=== PATIENT | female | born 1995 | race Caucasian/White ===

== ENCOUNTER 2021-03-22 11:14 | Outpatient (RCR) | payer OTHER, SELFPAY ==
[2021-03-22] MEDS: ACETAMINOPHEN 325 MG TABLET 650 MG PO (15:16)
[2021-03-22] MEDS: diphenhydrAMINE HCl CAP 25 MG CAPSULE PO (15:16)
[2021-03-22] MEDS: FAMOTIDINE 20 MG TABLET PO (15:16)
[2021-03-22 15:22] VITALS: BP 125/69; PULSE 70; RESP 18; TEMP 37.3; O2SAT 99
[2021-03-22 16:29] VITALS: BP 120/71; PULSE 59; RESP 16; TEMP 37.3; O2SAT 100
== END 2021-03-22 17:00 | disposition home or self-care (01) ==
LOC: AMCINF 11:14
PROVIDERS: PCP Nurse Practitioner Adult Health; Visit Provider Internal Medicine Hematology & Oncology
DX: U07.1 COVID-19 (principal); J45.909 Unspecified asthma, uncomplicated
CPT/HCPCS: A9270; M0243; Q0244

== ENCOUNTER 2023-05-13 13:59 | Emergency (ER) | payer OTHER, MEDICAID, SELFPAY ==
--- NOTE | ~2023-05-13 | CT_ITS ---
EXAMINATION: CT abdomen pelvis w con DATE: 05/13/2023 17:00 INDICATION: Back pain leading to the bilateral hips with nausea and fever TECHNIQUE: Computed tomography (CT) of the abdomen and pelvis was performed with 100 mL Omnipaque-350 intravenous contrast. Automated exposure control and iterative reconstruction technique were employe d. The dose-length product was 388.57 mGy-cm. COMPARISON: None FINDINGS: Lung bases are clear. Heart size is normal. No pericardial or pleural effusion. Mild pectus excavatum . Liver, gallbladder, spleen, pancreas, bilateral adrenal glands and kidneys are normal. Normal appen matt. No bowel obstruction. Bladder, uterus and bilateral adnexa are unremarkable. No free intraperito rebeca gas or fluid. No pathologically enlarged abdominal or pelvic lymphadenopathy. Bones are unremark able. IMPRESSION: 1. No acute intra-abdominal/pelvic process. Reviewed, dictated and finalized at location A. NO DEALER
--- NOTE | ~2023-05-13 | XR_ITS ---
EXAMINATION: XR chest 2V Exam Date/Time: 05/13/2023 18:06 SMOCKING MACHINE OPERATOR HISTORY: cough Comparison: None. RESULT: Lines, tubes, and devices: None. Lungs and pleura: Clear. Apparent hazy right medial basal consolidation is likely secondary to pectu s excavatum, as it is in a classic location and there is no correlate opacity in the lateral view. Cardiomediastinal silhouette: Normal. Other: No acute osseous or upper abdominal finding. IMPRESSION: No acute cardiopulmonary process. Reviewed, dictated and finalized at location K. KING MACHINE OPERATOR
[2023-05-13 14:04] VITALS: BP 123/73; PULSE 120; RESP 20; TEMP 36.8; O2SAT 99
--- NOTE | 2023-05-13 15:42 | ED.GENADULT ---
HPI - General Adult General Chief complaint: Nausea/Vomiting/Diarrhea <Annamaria Lepe July, Last Filed: 05/13/23 15:49> Stated complaint: nausea / vomiting for 2 days and fever <Annamaria Lepe July, - Last Filed: 05/13/23 15:49> Time Seen by Provider: 05/13/23 15:42 <Annamaria Lepe July, - Last Filed: 05/13/23 15:49> Focused HPI: Dwight Roldan is a 28 y/o female who presents with complaints of having fever/ Nausea/vomiting that started yesterday - Temp was 102 today and she reports she has vomited twice today that was stomach bile. She also reports of lower abdominal pain. Denies dysuria - she vincent to an UC tested negative for flu/covid and was given Ibuprofen and told to go to the ER for more of a work up. GENERAL:well-nourished, and in no acute distress. Appear to be uncomfortable HEAD: Normocephalic, atraumatic. CHEST: Clear to auscultation. ?No respiratory distress. HEART: Regular rate and rhythm.? NEURO: ?Alert and oriented x3. GI: Pain to the lower abdomen with palpation Patient screened in triage and initial orders placed.? ?Additional care and disposition to be based upon?diagnostic testing and treatment. <Annamaria Lepe July, Last Filed: 05/13/23 15:49> History of Present Illness HPI narrative: 28-year-old female reports for evaluation for productive cough, congestion, nausea and vomiting, pain back pain since yesterday. Patient states yesterday she 1 episode of emesis and developed a fever 102 today. States she went to urgent care tested negative for COVID influenza sent here for further evaluation. Patient has a known history of a lumbar cyst that was diagnosed in 2011, attempted aspiration without success. Patient was told it was too small for aspiration she has not had any issues since other than intermittent low back pain. States she her back pain is currently sharp. Denies saddle anesthesia, lower extremity weakness or numbness, bowel or bladder incontinence or retention. She is also reporting pain in her bilateral inguinal regions which she states happens every time she feels ill. She denies vaginal discharge or concern for STDs. Patient states she took ibuprofen prior to coming to the ER which improved her fever. Denies otalgia, sore throat, recent surgeries or procedures on her back, IV drug use, diarrhea. <Kristie Fish PA-C - Last Filed: 05/14/23 02:17> Related Data Home medications: Home Medications Medication Instructions Recorded Confirmed albuterol 90 mcg/actuation aerosol 90 mcg inhalation DAILY PRN 03/22/21 03/22/21 inhaler Shortness Of Breath sertraline 25 mg tablet (Zoloft) 25 mg PO DAILY 03/22/21 03/22/21 <Annamaria Lepe July, GRAPHITE MILL OPERATOR - Last Filed: 05/13/23 15:49> Allergies/adverse reactions: Allergies Allergy/AdvReac Type Severity Reaction Status Date / Time almond Allergy Anaphylaxis Verified 05/13/23 17:17 barley Allergy Anaphylaxis Verified 05/13/23 17:17 soy Allergy Anaphylaxis Verified 05/13/23 17:17 pitted fruits Allergy Anaphylaxis Uncoded 05/13/23 13:59 rye Allergy Anaphylaxis Uncoded 05/13/23 13:59 <Annamaria Lepe July, GRAPHITE MILL OPERATOR - Last Filed: 05/13/23 15:49> Review of Systems Review of Systems: CONSTITUTIONAL: See HPI EYES: Denies visual changes, redness, or discharge. ENT: Denies rhinorrhea, congestion, sore throat, or otalgia. CARDIOVASCULAR: Denies chest pain, palpitations, or edema. RESPIRATORY: Denies cough or dyspnea. GASTROINTESTINAL: See HPI GENITOURINARY: See HPI SKIN: Denies rash or itching. MUSCULOSKELETAL: Denies back pain, joint pain, or myalgia. NEUROLOGIC: Denies headache, numbness, or weakness. PSYCHIATRIC: Denies anxiety or depression. <Kristie Fish PA-C - Last Filed: 05/14/23 02:17> Exam Narrative: GENERAL: Well-appearing, well-nourished, and in no acute distress. Patient resting comfortably in exam bed. She is pleasant and conversational. HEAD: Normocephalic, atraumatic. EYES: PERRLA and EOMI. ENT: Nares clear
[2023-05-13 16:17] VITALS: BP 129/84; PULSE 91; RESP 18; O2SAT 100
[2023-05-13] MEDS: FAMOTIDINE 20 MG/2 ML VIAL IV PUSH (16:26)
[2023-05-13] MEDS: ONDANSETRON INJ 4 MG/2 ML VIAL IV PUSH (16:27)
[2023-05-13 16:29] LABS: Basophils Percent Auto 0.4 % (0.2-1.2); Hematocrit 42.2 % (37.0-47.0); Immature Granulocyte Absolute 0.02 K/mm3 (0.00-0.031); Immature Granulocyte Percent A 0.3 % (0-0.5); Lymphocytes Percent Auto 4.2 % (18.3-44.2); Mean Corpuscular HGB Conc 33.2 g/dl (32-36); Mean Corpuscular Volume 87.4 fl (80-100); Mean Platelet Volume 9.7 fl (7.4-10.4); Monocytes Absolute Auto 0.6 K/mm3 (0.1-0.6); Neutrophils Absolute Auto 6.2 K/mm3 (1.3-6.7); Neutrophils Percent Auto 86.1 % (45.5-73.1); Platelet Count Result 275 k/mm3 (150-375); Red Blood Count 4.83 M/mm3 (4.2-5.4); Red Cell Distribution Width 11.8 % (11.5-14.5); White Blood Count 7.1 K/mm3 (4.5-10.0)
[2023-05-13 16:41] LABS: Alanine Aminotransferase 21 U/L (6-35); Albumin Level 5.1 g/dL (3.5-5.1); Alkaline Phosphatase 101 U/L (38-126); Anion Gap 10 mmol/L (8-16); Aspartate Amino Transferase 27 U/L (14-36); Bilirubin,Total 0.9 mg/dL (0.2-1.3); Blood Urea Nitrogen 12 mg/dL (7-17); Calcium 11.5 mg/dL (8.4-10.2); Carbon Dioxide 24 mmol/L (22-30); Chloride 105 mmol/L (98-107); Estimated CRCL calculation 144 ml/min; Estimated Glomerular Filt Rate > 60; Glucose 99 mg/dL (65-110); Lipase 35 U/L (23-300); Potassium 3.2 mmol/L (3.4-5.0); Sodium 139 mmol/L (137-145)
[2023-05-13 16:57] LABS: Appearance Urine Clear (Clear); Bacteria Urine None Seen /hpf; Bilirubin Urine Negative (Negative); Blood Urine Negative (Negative); Color Urine Yellow (Yellow); Glucose Urine UA Negative (Negative); Ketones Urine 3+ mg/dL (Negative); Leukocyte Esterase Ur Negative LEU/UL (Negative); Nitrate Urine Negative (Negative); Non Pathogenic Casts 0-2; Protein Urine 1+ mg/dL (Negative); Specific Grav Ur 1.026 (1.001-1.035); Squamous Epithelial Cell Urine None seen /hpf (Few); Urobilinogen Urine 0.2 mg/dL (<2.0); WBC Urine 0-5 /hpf; pH Urine 6.5 (5.0-9.0)
[2023-05-13 16:58] LABS: Add Urine Microscopic? YES
--- NOTE | 2023-05-13 17:43 | ECG_ITS ---
Measurements Intervals [place] Rate: 75 P: MT: 0 QRS: 50 QRSD: 117 T: 30 QT: 385 QTc: 431 Interpretive Statements ATRIAL FIBRILLATION INCOMPLETE RIGHT BUNDLE BRANCH BLOCK BORDERLINE ECG NO PREVIOUS ECG AVAILABLE FOR COMPARISON Electronically Signed On 05-13-2023 18:36:59 [place]E MACHINE OPERATOR by Ralf Eckert M.D.
[2023-05-13] MEDS: SODIUM CHLORIDE 0.9% IV 1,000 ML 999 ML IV CONT ×2 (18:05→18:37)
[2023-05-13 18:12] LABS: Magnesium 2.1 mg/dL (1.6-2.3)
[2023-05-13] MEDS: POTASSIUM CHLORIDE 20 MEQ PACKET (FOR LIQUID) PO (18:37)
--- NOTE | 2023-05-13 18:53 | ECG_ITS ---
Measurements Intervals [place] Rate: 79 P: 76 SC: 164 QRS: 45 QRSD: 119 T: 49 QT: 382 QTc: 438 Interpretive Statements SINUS RHYTHM WITH SINUS ARRHYTHMIA INCOMPLETE RIGHT BUNDLE BRANCH BLOCK [90+ ms QRS DURATION, TERMINAL R IN V1/V2, 40+ ms S IN I/aVL/V4/V5/V6] COMPARED TO ECG 05/13/2023 18:00:01 SINUS RHYTHM NOW PRESENT SINUS ARRHYTHMIA NOW PRESENT Electronically Signed On 05-14-2023 15:19:54 CUSTOMER OPERATIONS INTERN by Feliciano Hwang M.D.
[2023-05-13 19:46] VITALS: BP 128/75; PULSE 98; RESP 15; O2SAT 99
== END 2023-05-13 19:47 | disposition home or self-care (01) ==
PROVIDERS: Nurse Practitioner Family; Emergency Provider Physician Assistant; PCP Nurse Practitioner Adult Health
DX: B34.9 Viral infection, unspecified (principal); E86.0 Dehydration; E87.6 Hypokalemia; E83.52 Hypercalcemia; R11.2 Nausea with vomiting, unspecified; I48.91 Unspecified atrial fibrillation; I45.10 Unspecified right bundle-branch block
CPT/HCPCS: 36415; 71046; 74177; 80053; 81001; 81025; 83690; 83735; 85025; 93005; 96361; 96374; 96375; 99284; A9270; J2405; J7030; Q9967

== ENCOUNTER 2024-10-25 08:25 | Emergency (ER) | payer OTHER, SELFPAY ==
--- NOTE | 2024-10-25 08:44 | ED.GENADULT ---
HPI - General Adult General Chief complaint: Abdominal Pain Stated complaint: Vomiting/Abdominal Pain0 Time Seen by Provider: 10/25/24 08:44 Source: patient Mode of arrival: ambulatory Limitations: no limitations History of Present Illness HPI narrative: 29-year-old female patient presents to the [facility] with complaints of lower abdominal cramping, vomiting and diarrhea that started about 3:00 a.m. this morning. Patient states that she does vomit often in the morning and usually does have some nausea in the morning. Patient states that this episode this morning also had diarrhea occurring as well. Patient states that she has been getting some rashes on her belly which she describes as eczema but has never been diagnosed with eczema. Patient states she has not had a period about 7 years due to being on IUD and Depo. Patient states that she recently went off the Depo her last shot was in February of 2024 and it does have an appointment follow-up with OBGYN. Patient states she had about 1 or 2 glasses of most last night with dinner. Mother patient states that she did have hamburgers some fries with her partner however her partner has no symptoms. Patient states she does smoke marijuana every night before bed to help her sleep. Patient states she has been smoking marijuana every night before bed for at least 3 years. Related Data Home Medications ?Medication ?Instructions ?Recorded ?Confirmed ?Last Taken ?Type albuterol 90 mcg/actuation aerosol 90 mcg inhalation DAILY PRN 03/22/21 03/22/21 Unknown History inhaler Shortness Of Breath Allergies Allergy/AdvReac Type Severity Reaction Status Date / Time almond Allergy Anaphylaxis Verified 10/25/24 08:57 barley Allergy Anaphylaxis Verified 10/25/24 08:57 soy Allergy Anaphylaxis Verified 10/25/24 08:57 pitted fruits Allergy Anaphylaxis Uncoded 10/25/24 08:57 rye Allergy Anaphylaxis Uncoded 10/25/24 08:57 Review of Systems Review of Systems: CONSTITUTIONAL: Denies fever, chills, or sweats. EYES: Denies visual changes, redness, or discharge. ENT: Denies rhinorrhea, congestion, sore throat, or otalgia. CARDIOVASCULAR: Denies chest pain, palpitations, or edema. RESPIRATORY: Denies cough or dyspnea. GASTROINTESTINAL: Positive lower abdominal cramping, positive nausea, vomiting, stand diarrhea. GENITOURINARY: Denies dysuria or hematuria. SKIN: Positive rash to abdomen area, positive itching. MUSCULOSKELETAL: Denies back pain, joint pain, or myalgia. NEUROLOGIC: Denies headache, numbness, or weakness. PSYCHIATRIC: Denies anxiety or depression. [facility] Past Medical History Medical History Chronic vomiting Chronic nausea Anxiety Depression Social History Social History (Updated 10/25/24 @ 09:17 by AYSE Garcia) Substance use type: marijuana Last use: Daily marijuana smoker Comments At the time of my signature I agree with nursing past medical history, surgical, social, and family history. There is no relevant family history pertinent to the presenting complaint. Exam Narrative: GENERAL: Well-appearing, well-nourished, and in no acute distress. HEAD: Normocephalic, atraumatic. EYES: PERRLA and EOMI. ENT: Nares clear, no rhinorrhea or epistaxis. Mucous membranes moist. Posterior pharynx no erythema, tonsillar enlargement, exudates or lesions present. Bilateral TMs are clear no erythema or foreign bodies the canal. NECK: Supple. No lymphadenopathy CHEST: Clear to auscultation. No respiratory distress. HEART: Regular rate and rhythm. No murmur heard. Normal peripheral pulses. ABDOMEN: Soft, flat, nondistended. No guarding, rebound tenderness, or rigid. No pulsatilla masses. Hyperactive Bowel sounds present in all right lower and left lower quadrants. No organomegaly. Negative Vargas?s sign. No periumbicial tenderness. No Supra public tenderness or distension. Good femoral pulses bilaterally. No hernia noted. No scars or surface trauma. EXTREMITIES: Normal range of motion. No edema. SKIN: Warm, dry, no rash. NEURO: No focal deficits. Alert and oriented x3. Course Course Level of Care: Express Care Visit Reevaluation(s) Reevaluation #1: Re-evaluated patient notified her that her urine dip is negative and her test is negative. We will send the urine off for culture to make sure there is a bacterial infection could be causing her symptoms. Discussed with patient that I do believe that he has chronic issues are most likely be caused by poor got health as well as possibly a gluten intolerance or THC intolerance causing chronic hyperemesis. Highly recommend the patient goes off both gluten and the THC for at least 3-4 weeks and see if her symptoms improve. Discussed with patient to start taking a probiotic to help care and got help. Discussed with patient if she would like to reintroduce the THC wore the wound is about 3-4 weeks and see if the symptoms come back and then she will know which 1 she has intolerance to appear in highly recommend patient follow-up with primary doctor for further evaluation including blood panel. Patient verbalized understanding denies any other questions or concerns at this time. Date: 10/25/24 Time: 09:27 Vital Signs Vital signs: Vital Signs Temperature 37.1 C 10/25/24 08:45 Pulse Rate 73 10/25/24 08:45 Respiratory Rate 20 10/25/24 08:45 Blood Pressure 141/81 H 10/25/24 08:45 Pulse Oximetry 100 10/25/24 08:45 Oxygen Delivery Room Air 10/25/24 08:45 Temperature 37.1 C 10/25/24 08:45 Pulse Rate 73 10/25/24 08:45 Respiratory Rate 20 10/25/24 08:45 Blood Pressure 141/81 H 10/25/24 08:45 Pulse Oximetry 100 10/25/24 08:45 Oxygen Delivery Room Air 10/25/24 08:45 Vital signs reviewed. The patient has been informed that they may have pre-hypertension or Hypertension based on a BP reading in the department. I recommend that the patient call the primary care provider listed on their discharge instructions or a physician of their choice this week to arrange follow up for further evaluation of possible pre-hypertension or Hypertension Medical Decision Making MDM Narrative Medical decision making narrative: Plan care for patient is to obtain a urine dip to assess for possible infections. test. Discussed with patient I highly suspect that her chronic nausea and vomiting is most likely due to chronic marijuana use. Discussed with patient this also could be gluten intolerance. Highly recommend that she goes off both the THC and the gluten and see if her symptoms have resolved and also recommend that she start some probiotics to help healing her God. Highly recommend the patient follow up with primary doctor for further evaluation including blood tests. I will reassess patient once urine dip and test has resulted. Patient does have a current prescription for Zofran at this time. Differential Diagnosis Differential Diagnosis: Differential diagnosis: Appendicitis, ovarian torsion, gallbladder disease, ovarian torsion, pancreatitis, lower lobe pneumonia,AAA, AMI or ACS, DKA, diverticulitis. Vital Signs Vital Signs: Vital Signs Temperature 37.1 C 10/25/24 08:45 Pulse Rate 73 10/25/24 08:45 Respiratory Rate 20 10/25/24 08:45 Blood Pressure 141/81 H 10/25/24 08:45 Pulse Oximetry 100 10/25/24 08:45 Oxygen Delivery Room Air 10/25/24 08:45 Temperature 37.1 C 10/25/24 08:45 Pulse Rate 73 10/25/24 08:45 Respiratory Rate 20 10/25/24 08:45 Blood Pressure 141/81 H 10/25/24 08:45 Pulse Oximetry 100 10/25/24 08:45 Oxygen Delivery Room Air 10/25/24 08:45 Critical Care Time Critical Care Time Critical Care Time: No Discharge Plan Discharge Clinical Impression: Hyperemesis, Diarrhea Patient Disposition: Home Condition: Stable Instructions: Antibiotic Form, Gluten-Free Diet (ED) Additional Instructions: Give fluids to prevent dehydration. Low-fat diet with increase in fluids, such as sports drinks, gelatin, soups, to prevent dehydration. Other suggestions include chicken noodle soup, Rice, bread, crackers, cereal, yogurt bananas, and applesauce. High sugar foods and drinks (soda and juices), can worsen diarrhea. Eating fried foods can worsen diarrhea. For vomiting: The best is to give small amounts at a time. When the stomach is upset, and will vomit when it fills. Prevent this by giving only 1 cup at a time. And to give more in 15 minutes. This will keep the stomach empty, so the patient is less likely to vomit. If you do not vomit after this, you can slowly increase the amount in the cup each time. Medicines to stop vomiting can help. Call your doctor or go to the ER if your condition worsens or: Fever (temperature greater than 10 2?F [39?C]) occurs. There is blood in the stool diarrhea or if the stool is black. Lots of diarrhea occurs. Lots of vomiting occurs or the vomit is bloody or green or looks like chocolate or coffee. The belly looks very full or big. Symptoms of dehydration occurs (inside of the mouth looks sticky, urinating less, weakness, tiredness, pale color, eyes look hollow or sucken). Abdominal pain is worse. Patient Language: Armenian Prescriptions: No Action albuterol 90 mcg/actuation Aerosol 90 mcg INHALATION DAILY PRN (Reason: Shortness Of Breath) ondansetron 4 mg tablet,disintegrating 4 mg PO Q8H Qty: 14 0RF Follow-up/Referrals: Erum Pettit APRN [Primary Care Provider] - Stand Alone Forms: Work/School Release IP Time of Disposition: 09:27
[2024-10-25 08:45] VITALS: BP 141/81; PULSE 73; RESP 20; TEMP 37.1; O2SAT 100
[2024-10-25 09:23] LABS: BEDSIDEPREGUCG Negative (Negative); EDUAAPPEAR Clear; EDUABILI Negative (Negative); EDUABLOOD Negative (Negative); EDUACOLOR1 Yellow; EDUAGLUCOSE Negative (Negative); EDUAKETONE Negative (Negative); EDUALEUKO Negative (Negative); EDUANITRATE Negative (Negative); EDUAPH 7.5; EDUAPROTEIN Negative (Negative); EDUASPGRAVITY 1.020; EDUAUROBILI 0.2
== END 2024-10-25 09:34 | disposition home or self-care (01) ==
PROVIDERS: Emergency Provider Nurse Practitioner Family; PCP Nurse Practitioner Adult Health
DX: R11.10 Vomiting, unspecified (principal); R19.7 Diarrhea, unspecified; F12.90 Cannabis use, unspecified, uncomplicated
CPT/HCPCS: 81003; 81025; 87086; 99213; G0463